=== PATIENT | female | born 1940 | race Caucasian/White ===

== ENCOUNTER 2018-08-07 16:32 | Outpatient (REF) | payer MEDICARE, SELFPAY ==
[2018-08-07 22:20] LABS: ALT 53 U/L (12-78); AST 22 U/L (15-37); Albumin 3.5 g/dL (3.4-5.0); Alkaline Phosphatase 101 U/L (46-116); Anion Gap 6.2 mmol/L (3-11); BUN 11 mg/dL (7-18); Bilirubin, Total 0.4 mg/dL (0.2-1.0); CO2 31.8 mmol/L (21.0-32.0); Calcium 9.3 mg/dL (8.5-10.1); Chloride 101 mmol/L (98-107); Glucose 89 mg/dL (70-100); Potassium 3.7 mmol/L (3.5-5.1); Sodium 139 mmol/L (136-145); TSH (W/Ref FT4) 1.78 uIU/mL (0.358-3.74); Total Protein 6.9 g/dL (6.4-8.2)
== END 2018-08-07 16:52 ==
LOC: NCHCN 16:32
PROVIDERS: Visit Provider Family Medicine
DX: I10 Essential (primary) hypertension (principal); R94.31 Abnormal electrocardiogram [ECG] [EKG]
CPT/HCPCS: 80053; 84443

== ENCOUNTER 2018-10-12 07:44 | Outpatient (REF) | payer MEDICARE, SELFPAY ==
[2018-10-11 21:21] LABS: Anion Gap 6.9 mmol/L (3-11); BUN 19 mg/dL (7-18); CO2 32.1 mmol/L (21.0-32.0); CREATININE 0.81 mg/dL (0.55-1.02); Calcium 9.1 mg/dL (8.5-10.1); Chloride 103 mmol/L (98-107); Glucose 161 mg/dL (70-100); Potassium 3.8 mmol/L (3.5-5.1); Sodium 142 mmol/L (136-145)
== END 2018-10-12 08:04 ==
LOC: NCHCN 07:44
PROVIDERS: Visit Provider Internal Medicine Cardiovascular Disease
DX: I10 Essential (primary) hypertension (principal); R00.2 Palpitations
CPT/HCPCS: 80048

== ENCOUNTER 2018-11-12 14:53 | Outpatient (REF) | payer MEDICARE, SELFPAY ==
[2018-11-12 22:57] LABS: Anion Gap 8.3 mmol/L (3-11); BUN 13 mg/dL (7-18); CO2 31.7 mmol/L (21.0-32.0); CREATININE 0.81 mg/dL (0.55-1.02); Calcium 9.3 mg/dL (8.5-10.1); Calculated LDL 105 mg/dL; Chloride 101 mmol/L (98-107); Cholesterol 194 mg/dL (50-200); Glucose 117 mg/dL (70-100); HDL Cholesterol 58 mg/dL (40-60); Potassium 4.2 mmol/L (3.5-5.1); Sodium 141 mmol/L (136-145); Triglyceride 157 mg/dL (30-150)
== END 2018-11-12 15:13 ==
LOC: NCHCN 14:53
PROVIDERS: Visit Provider Family Medicine
DX: I48.0 Paroxysmal atrial fibrillation (principal); R60.0 Localized edema; I51.9 Heart disease, unspecified; R39.15 Urgency of urination
CPT/HCPCS: 80048; 80061; 83721

== ENCOUNTER 2019-10-03 11:52 | Outpatient (REF) | payer MEDICARE, SELFPAY ==
[2019-10-03 21:19] LABS: ALT 33 U/L (14-59); AST 21 U/L (15-37); Albumin 3.5 g/dL (3.4-5.0); Alkaline Phosphatase 75 U/L (46-116); Anion Gap 6.7 mmol/L (3-11); BUN 14 mg/dL (7-18); Bilirubin, Total 0.7 mg/dL (0.2-1.0); CO2 32.3 mmol/L (21.0-32.0); CREATININE 0.76 mg/dL (0.55-1.02); Calcium 9.2 mg/dL (8.5-10.1); Calculated LDL 118 mg/dL (<100); Chloride 100 mmol/L (98-107); Cholesterol 213 mg/dL (<200); Glucose 101 mg/dL (74-106); HDL Cholesterol 65 mg/dL (40-60); Potassium 4.1 mmol/L (3.5-5.1); Sodium 139 mmol/L (136-145); Total Protein 6.9 g/dL (6.4-8.2); Triglyceride 151 mg/dL (<150)
== END 2019-10-03 12:12 ==
LOC: NCHCN 11:52
PROVIDERS: PCP Family Medicine; Visit Provider Family Medicine
DX: I10 Essential (primary) hypertension (principal)
CPT/HCPCS: 80053; 80061

== ENCOUNTER 2019-12-31 11:02 | Outpatient (REF) | payer MEDICARE, SELFPAY ==
[2019-12-31 22:06] LABS: Glucose 121 mg/dL (74-106)
[2019-12-31 22:26] LABS: Hemoglobin A1C 5.8 % (<5.7)
== END 2019-12-31 11:22 ==
LOC: NCHCN 11:02
PROVIDERS: PCP Family Medicine; Visit Provider Family Medicine
DX: R73.01 Impaired fasting glucose (principal)
CPT/HCPCS: 82947; 83036

== ENCOUNTER 2020-01-13 11:45 | Outpatient (REF) | payer MEDICARE, SELFPAY ==
[2020-01-13 21:45] LABS: HCT 46.6 % (36.0-46.0); HGB 15.1 g/dL (11.2-15.7); MCH 34.4 pg (27.0-33.0); MCHC 32.4 % (32.0-36.0); MCV 106.2 fL (80-95); MPV 11.7 fL (8.0-11.0); Platelet Count 301 10^3/uL (130-400); RBC 4.39 10^6/uL (3.93-5.22); RDW 12.6 % (11.7-14.6); RDW-SD 49.3 fL; WBC 6.99 10^3/uL (4.4-10.8)
[2020-01-13 22:23] LABS: Folate > 20.0 ng/mL (8.6-20.0); TSH 0.94 uIU/mL (0.36-3.74); Vitamin B12 726 pg/mL (193-986)
== END 2020-01-13 12:05 ==
LOC: NCHCN 11:45
PROVIDERS: PCP Family Medicine; Visit Provider Family Medicine
DX: R73.03 Prediabetes (principal); L65.9 Nonscarring hair loss, unspecified; D75.1 Secondary polycythemia
CPT/HCPCS: 85027; 82607; 82746; 84443

== ENCOUNTER 2021-01-20 14:59 | Outpatient (REF) | payer MEDICARE, SELFPAY ==
[2021-01-20 22:12] LABS: HCT 42.4 % (36.0-46.0); HGB 12.9 g/dL (11.2-15.7); MCH 29.4 pg (27.0-33.0); MCHC 30.4 % (32.0-36.0); MCV 96.6 fL (80-95); MPV 11.3 fL (8.0-11.0); Platelet Count 271 10^3/uL (130-400); RBC 4.39 10^6/uL (3.93-5.22); RDW 15.1 % (11.7-14.6); RDW-SD 53.9 fL
[2021-01-21 00:10] LABS: Hemoglobin A1C 5.6 % (<5.7)
== END 2021-01-20 15:00 | disposition home or self-care (01) ==
LOC: NCHCN 14:59
PROVIDERS: PCP Family Medicine; Visit Provider Family Medicine
DX: R73.03 Prediabetes (principal); D75.1 Secondary polycythemia
CPT/HCPCS: 85027; 83036

== ENCOUNTER 2021-05-05 11:55 | Outpatient (CLI) | payer MEDICARE, SELFPAY ==
--- NOTE | 2021-05-05 06:00 | DI.RAD_ITS ---
Exam(s) XR PAIN CLINIC FLUORO JOINT IN EXAM: XR PAIN CLINIC FLUORO JOINT IN CLINICAL HISTORY: DX: Osteoarthritis of the knee TECHNIQUE: 2D and realtime digital imaging was performed. Radiologist not present. CONTRAST MATERIAL: None. COMPARISON: No exams were available for comparison FINDINGS: Fluoroscopy was provided for pain management therapy. Please refer to procedure report or details. Cumulative dose: Kar=3.29 mGy IMPRESSION: RADIATION DOSE DELIVERED:
[2021-05-05 12:18] VITALS: BP 167/84; PULSE 60; RESP 20; TEMP 36.8; O2SAT 95
[2021-05-05 13:04] VITALS: PULSE 67; RESP 18; O2SAT 97
[2021-05-05 13:20] VITALS: BP 133/69; PULSE 68; RESP 20; O2SAT 97
[2021-05-05] MEDS: Omnipaque 240 MG/ML 50 ML BTL IJ (13:23)
[2021-05-05] MEDS: Bupivacaine 0.5% Pres-Free 10 ML VIAL IJ (13:24)
--- NOTE | 2021-05-05 13:26 | PDOC.PAIN_ITS ---
Pain Clinic Procedure Note Procedure Note Procedure Note: RIGHT GENICULAR NERVE BLOCK Date of Service: May 05, 2021 Patient: Za Hunt Provider: Mohsen Germain DO, MPH Pre-operative diagnosis: Knee pain Post-operative diagnosis: Same Pre-procedure pain: VAS= 9/10 COMMENTS: She was evaluated by Dr. Pittman at [facility]. Dr. Pittman recommended this procedure. Our facility is closer to her home and that is why she is here to do this procedure. Za Hunt has been [facility] the [facility] for RIGHT genicular nerve block. Za was interviewed and the medical record reviewed. There were no medical, pharmacologic, radiographic or other structural contraindications to attempting fluoroscopically guided RIGHT genicular nerve block. Risks and potential side effects as well as potential benefit of the procedure were reviewed with Za , and HER voiced concerns were addressed. After I believed that the patient was completely informed, the printed consent form was signed. Standard time-out procedure was performed. Za was placed in the supine position on the fluoroscopy table and automated blood pressure cuff and pulse oximeter applied. The skin entry points for approaching RIGHT superolateral genicular nerve, the superomedial genicular nerve, the terminal branch of the nerve vastus intermedius and the inferomedial genicular was identified under the most advantageous fluoroscopic view and marked. Following thorough Chlorhexadine preparation of the skin and draping, 1% lidocaine infiltration of the skin entry point and subcutaneous tissues was accomplished using a 1.5 25G needle. Next, the 3.5 25G spinal needle was advanced to os at the location of the specific nerve root using fluoroscopic guidance. Next, 1 ml of 1% Lidocaine was injected at each site. The needles were removed without difficulty. Za's vital signs were stable throughout the procedure and were as recorded in the docflowsheet by the nursing staff. If given, dosages of intravenous drugs for anxiolysis and analgesia were documented in MAR. Follow up plans and appointments were discussed with the Za . Post procedure instruction was given as documented in nursing documentation and having met discharge criteria, Za was discharged from the [facility]. COMMENTS: No apparent complications. Post-procedure pain: VAS = 2/10. The patient will keep track of her RIGHT knee pain over the next four hours. If Za has sufficient pain relief, Za will be a candidate for radiofrequency ablation at the same nerves. Tj JohnsonJ1, Robert SJ, Taran JG, Nidia JG, Bonds RIZVI, Park PH, Borja JW. Radiofrequency treatment relieves chronic knee osteoarthritis pain: a double-blind randomized controlled trial. Pain. 2010;152(3):481-7. doi: 10.1016/j.pain.2010.09.029. Becky S1, Don ON2, Amy Y3, ?zl?toro P2, Erik U1, Rebel ?m?rl? I. Which one is more effective for the clinical treatment of chronic pain in knee osteoarthritis: radiofrequency neurotomy of the genicular nerves or intra- articular injection? Int J Rheum Dis. 2016 Nov 25. F/U with our office by phone to give us her 1-4 hour post-procedure pain VAS scores for her right knee. I personally performed this entire procedure. Mohsen Germain DO, MPH Attending Physician [facility]
== END 2021-05-05 11:56 | disposition home or self-care (01) ==
PROVIDERS: PCP Family Medicine; Visit Provider Preventive Medicine Occupational Medicine
DX: M25.561 Pain in right knee (principal)
CPT/HCPCS: 64454; 77002; Q9967

== ENCOUNTER 2022-01-31 18:39 | Outpatient (REF) | payer MEDICARE, SELFPAY ==
[2022-01-31 15:49] LABS: ALT 41 U/L (14-59); AST 33 U/L (15-37); Albumin 3.5 g/dL (3.4-5.0); Alkaline Phosphatase 88 U/L (46-116); Anion Gap 7.3 mmol/L (3-11); BUN 14 mg/dL (7-18); Bilirubin, Total 0.7 mg/dL (0.2-1.0); CO2 25.7 mmol/L (21.0-32.0); CREATININE 0.7 mg/dL (0.55-1.02); Calculated LDL 114 mg/dL (<100); Chloride 107 mmol/L (98-107); Cholesterol 200 mg/dL (<200); Estimated GFR 87.37 (mL/min/1.73m2); Glucose 100 mg/dL (74-106); HDL Cholesterol 64 mg/dL (40-60); Potassium 4.2 mmol/L (3.5-5.1); Sodium 140 mmol/L (136-145); Total Protein 7.1 g/dL (6.4-8.2); Triglyceride 111 mg/dL (<150)
[2022-01-31 16:01] LABS: Hemoglobin A1C 5.6 % (<5.7)
== END 2022-01-31 18:40 | disposition home or self-care (01) ==
LOC: NCHCN 18:39
PROVIDERS: PCP Family Medicine; Visit Provider Family Medicine
DX: I10 Essential (primary) hypertension (principal); R73.03 Prediabetes; E66.01 Morbid (severe) obesity due to excess calories
CPT/HCPCS: 80053; 80061; 83036

== ENCOUNTER 2022-03-30 12:05 | Outpatient (REF) | payer MEDICARE, SELFPAY | END 2022-03-30 12:06 | disposition home or self-care (01) | LOC: NCHCN 12:05 | PROVIDERS: PCP Family Medicine; Visit Provider Family Medicine | DX: N32.89 Other specified disorders of bladder (principal) | CPT/HCPCS: 87086 ==

== ENCOUNTER 2022-12-26 19:31 | Outpatient (REF) | payer MEDICARE, SELFPAY ==
[2022-12-26 17:15] LABS: Abs Immature Grans 0.01 10^3/uL (0.0-0.06); Absolute Basophil Count 0.03 10^3/uL (0.0-0.2); Absolute Eosinophil Count 0.07 10^3/uL (0.0-0.7); Absolute Lymphocyte Count 1.14 10^3/uL (1.2-3.4); Absolute Monocyte Count 0.45 10^3/uL (0.1-0.8); Absolute Neutrophil Count 2.66 10^3/uL (1.2-6.7); Basophils % 0.7; Eosinophils % 1.6; HCT 43.4 % (36.0-46.0); HGB 14.3 g/dL (11.2-15.7); Immature Grans % 0.2; Lymphocytes % 26.1; MCH 33.1 pg (27.0-33.0); MCHC 32.9 % (32.0-36.0); MCV 101 fL (80-95); MPV 11.1 fL (8.0-11.0); Monocytes % 10.3; Neutrophils % 61.1; Platelet Count 259 10^3/uL (130-400); RBC 4.32 10^6/uL (3.93-5.22); RDW 13.1 % (11.7-14.6); RDW-SD 48.9 fL; WBC 4.36 10^3/uL (4.4-10.8)
[2022-12-26 17:20] LABS: ALT 37 U/L (14-59); AST 28 U/L (15-37); Albumin 3.4 g/dL (3.4-5.0); Alkaline Phosphatase 92 U/L (46-116); Anion Gap 8.2 mmol/L (3-11); BUN 12 mg/dL (7-18); Bilirubin, Total 0.5 mg/dL (0.2-1.0); CO2 26.8 mmol/L (21.0-32.0); CREATININE 0.8 mg/dL (0.55-1.02); Chloride 106 mmol/L (98-107); Estimated GFR 73.98 (mL/min/1.73m2); Glucose 159 mg/dL (74-106); Potassium 4.4 mmol/L (3.5-5.1); Sodium 141 mmol/L (136-145); TSH (W/Ref FT4) 1.02 uIU/mL (0.36-3.74)
== END 2022-12-26 19:32 | disposition home or self-care (01) ==
LOC: NCHCN 19:31
PROVIDERS: PCP Family Medicine; Visit Provider Family Medicine
DX: R53.83 Other fatigue (principal); R63.0 Anorexia; R51.9 Headache, unspecified; R73.03 Prediabetes; I48.0 Paroxysmal atrial fibrillation
CPT/HCPCS: 80053; 84443; 85025

== ENCOUNTER 2024-06-19 12:57 | Outpatient (REF) | payer MEDICARE, SELFPAY ==
[2024-06-19 14:43] LABS: HCT 43.2 % (36.0-46.0); HGB 14.2 g/dL (11.2-15.7); MCH 32.6 pg (27.0-33.0); MCHC 32.9 % (32.0-36.0); MCV 99 fL (80-95); Platelet Count 303 10^3/uL (130-400); RBC 4.35 10^6/uL (3.93-5.22); RDW 13.2 % (11.7-14.6); RDW-SD 48.5 fL; WBC 5.91 10^3/uL (4.4-10.8)
[2024-06-19 15:06] LABS: Anion Gap 6.2 mmol/L (3-11); BUN 14 mg/dL (7-18); CO2 25.8 mmol/L (21.0-32.0); CREATININE 0.8 mg/dL (0.55-1.02); Calcium 9.2 mg/dL (8.5-10.1); Chloride 110 mmol/L (98-107); Estimated GFR 73.52 (mL/min/1.73m2); Glucose 129 mg/dL (74-106); Potassium 4.4 mmol/L (3.5-5.1); Sodium 142 mmol/L (136-145); TSH (W/Ref FT4) 0.92 uIU/mL (0.36-3.74)
== END 2024-06-19 12:58 | disposition home or self-care (01) ==
LOC: NCHCN 12:57
PROVIDERS: PCP Family Medicine; Visit Provider Family Medicine
DX: I48.91 Unspecified atrial fibrillation (principal); I10 Essential (primary) hypertension
CPT/HCPCS: 80048; 85027; 84443

== ENCOUNTER 2025-04-07 13:31 | Outpatient (REF) | payer MEDICARE, SELFPAY ==
[2025-04-07 21:22] LABS: Cholesterol 121 mg/dL (<200); HDL Cholesterol 52 mg/dL (>or=50)
[2025-04-07 21:55] LABS: Microalb ug/mg Crea 5.3 ug/mg Cr
[2025-04-08 08:47] LABS: Anion Gap 8.1 mmol/L (3-11); BUN 15 mg/dL (9-23); CO2 26.9 mmol/L (20.0-31.0); Calcium 9.3 mg/dL (8.3-10.6); Chloride 106 mmol/L (98-107); Glucose 128 mg/dL (74-106); Potassium 4.3 mmol/L (3.5-5.1); Sodium 141 mmol/L (136-145)
== END 2025-04-07 13:32 | disposition home or self-care (01) ==
LOC: NCHCN 13:31
PROVIDERS: PCP Family Medicine; Visit Provider Family Medicine
DX: I67.9 Cerebrovascular disease, unspecified (principal); I10 Essential (primary) hypertension; I50.32 Chronic diastolic (congestive) heart failure
CPT/HCPCS: 80048; 80061; 82043; 82570